=== PATIENT | male | born 1985 | race Two or more races ===

== ENCOUNTER → 2024-02-27 | Outpatient (CLI) | payer BC, OTHER, SELFPAY ==
--- NOTE | 2024-02-27 16:12 | XR_ITS ---
Examination: Thoracic spine 3 views Technique one AP lateral coned lateral upper dorsal spine 3 views Exam date and time: February 27, 2024 1713 hours INDICATIONS: Upper back pain beginning one month ago. FINDINGS: Upper thoracic levoscoliosis 6 degrees No thoracic fracture No thoracic disc narrowing Intact pedicles IMPRESSION: Upper thoracic levoscoliosis 6 degrees
--- NOTE | 2024-02-27 16:12 | XR_ITS ---
Examination: Lumbar spine, 5 views Technique: Lumbar spine AP, lateral, coned lateral lower lumbar spine, bilateral obliques 5 views Exam date and time: February 27, 2024 at 1706 hours INDICATIONS: Low back pain beginning one month ago radiating down both legs FINDINGS: Satisfactory alignment lumbar vertebral bodies No lumbar fracture Mild lumbar spondylosis Mild disc narrowing L5-S1 IMPRESSION: Early degenerative disc disease L5-S1
== END | disposition home or self-care (01) ==
LOC: CDIM 15:46
PROVIDERS: Referring Provider Internal Medicine; Visit Provider Internal Medicine
DX: M51.379 Other intervertebral disc degeneration, lumbosacral region without mention of lumbar back pain or lower extremity pain (principal); M41.84 Other forms of scoliosis, thoracic region
CPT/HCPCS: 72072; 72110

== ENCOUNTER 2024-11-07 13:37 | Emergency (ER) | payer BC, OTHER, SELFPAY ==
[2024-11-07 13:49] VITALS: BP 132/87; PULSE 83; RESP 20; TEMP 37.1; O2SAT 100; BMI 25.7
--- NOTE | 2024-11-07 13:55 | EDNOTE_ITS ---
<Statement entered by Danyell Townsend MD - 11/08/24 15:23> As co-signing physician, I was present and available for consult prn. I concur with the plan and care as documented by the midlevel provider. ED Abdominal Pain RME/HPI General Chief Complaint: Abdominal Pain Stated complaint: Abdominal pain, diarrhea today Time seen by provider: 11/07/24 13:41 Arrival date/time: 11/07/24 13:37 RME / HPI RME / HPI narrative: 39-year-old male patient was brought in by family for evaluation regarding diarrhea. Patient woke up this morning with diarrhea, at least 4 times, nonbloody associated with abdominal cramping and epigastric pain. Pain is described as burning-like sensation, severity moderate. Patient denies any fever denies any dizziness denies any other complaints. No medications taken prior to arrival. Denies any travel outside the [place]. Denies any ill contacts also. Related Data Previous Rx's ?Medication ?Instructions ?Recorded dicyclomine 20 mg tablet 20 mg PO TID PRN abdominal p ain 11/07/24 #30 tabs pantoprazole 40 mg tablet,delayed 40 mg PO QDAY #20 ta bs 11/07/24 release (Protonix) Allergies Allergy/AdvReac Type Severity Reaction Status Date / Time No Known Allergies Allergy Verified 11/07/24 13:41 Review of Systems Review of Systems Narrative Review of Systems: Review of system reviewed and within normal limits except mentioned in HPI ED Exam Narrative Physical exam: VITAL SIGNS: Reviewed. GENERAL APPEARANCE: Alert and interactive, follows commands, no acute distress, HEAD AND FACE: Non-traumatic. ENT: PERRL, pink conjunctivitis, eyelid no trauma, Mucous membrane moist. NECK: Supple, nontender, no nuchal rigidity. CHEST: No tenderness, no crepitus, no paradoxical movement, no retractions. LUNGS: Clear, well ventilated, symmetric, no rales, no wheezing, no ronchi, no stridor, good breath sounds bilaterally. HEART: Regular rate, regular rhythm, no murmur, no gallops. ABDOMEN: Soft, positive bowel sounds, nondistended, no guarding, epigastric tenderness, no rebound, no masses, RECTAL: Deferred. GENITAL: Deferred. NEUROLOGICAL: Gross motor function intact sensory function intact, Appropriate for age. MUSCULOSKELETAL: low back nontender, full range of motion. EXTREMITIES: Nontender, full range of motion. SKIN: Color pink, dry, no rash, no lacerations, no abrasions, no contusions. LYMPHATICS: Deferred. Course Quality Measures none Orders Category Date Time Status US gall bladder Stat Exams 11/07/24 14:00 Taken CBC [CBC] Stat Lab 11/07/24 14:03 Completed CMP [Comprehensive Metabolic Panel] Stat Lab 11/07/24 14:03 Completed Lipase Stat Lab 11/07/24 14:03 Completed Dicyclomine [Bentyl] Med 11/07/24 13:53 Discontinued 10 mg PO X1 ONE Metoclopramide [Reglan] Med 11/07/24 13:53 Discontinued 10 mg PO X1 ONE mg Hyd/Al Hyd/Narayan Susp [Maalox Susp] Med 11/07/24 13:53 Discontinued 30 ml PO X1 ONE Vital Signs Vital signs: Vital Signs Temperature 98.7 F 11/07/24 13:49 Pulse Rate 83 11/07/24 13:49 Respiratory Rate 20 11/07/24 13:49 Blood Pressure 132/87 H 11/07/24 13:49 Pulse Oximetry (%) 100 11/07/24 13:49 Oxygen Delivery Method Room Air 11/07/24 13:49 Abdominal Pain MDM MDM Narrative MDM Narrative:: 39-year-old male patient was brought in by family for evaluation regarding diarrhea. Patient woke up this morning with diarrhea, at least 4 times, nonbloody associated with abdominal cramping and epigastric pain. Pain is described as burning-like sensation, severity moderate. Patient denies any fever denies any dizziness denies any other complaints. No medications taken prior to arrival. Denies any travel outside the [place]. Denies any ill contacts also. Patient supports workup today all came back unremarkable. Except for leukocytosis 16.1 which is reactive in nature. CMP unremarkable lipase is normal ultrasound of gallbladder showed no acute pathology noted. Results discussed with the patient. Patient stable for discharge home advised to drink a lot of fluids including Pedialyte. Patient data External records reviewed:: None Clinical information provided by:: patient Social determinants that could affect healthcare access:: none Patient has the following chronic illnesses:: None How is presenting disease/condition affected by chronic disease/condition?: no chronic disease Evaluation data The following diagnostics were reviewed and interpreted by me:: lab results and radiology exam(s) Lab and/or radiology exams considered but not ordered:: None Interpretation Summary: See results MDM Medications / Prescriptions Medications or Prescriptions considered but not ordered:: None Medication administrations:: Medication Administration History Discontinued Medications Al Hydrox/Mg Hydrox/Simethicone (Mg Hyd/Al Hyd/Narayan (Maalox Reg) Susp 30 Ml Udc) 30 ml PO X1 ONE Stop: 11/07/24 13:54 Last Admin: 11/07/24 14:46 Dose: 30 ml Documented By: ELSIE Dicyclomine HCl (Dicyclomine 10 Mg Capsule) 10 mg PO X1 ONE Stop: 11/07/24 13:54 Last Admin: 11/07/24 14:45 Dose: 10 mg Documented By: ELSIE Metoclopramide HCl (Metoclopramide 5 Mg Tablet) 10 mg PO X1 ONE Stop: 11/07/24 13:54 Last Admin: 11/07/24 14:45 Dose: 10 mg Documented By: ELSIE Cervantes and Rodneyx Consultations Consultation(s) initiated? (list below): No Diagnosis Differential diagnosis abdominal pain: abdominal pain, constipation and gastroenteritis Most likely diagnosis given after review of the tests above:: Gastroenteritis Admission Indicated Admission indicated?: not indicated Explain why admission is indicated or not indicated:: Stable Admission Request Was there a request for admission?: No Disposition Plan Disposition Plan: Discharge Discharge Attestation Discharge Attestation: The patient was given an opportunity to ask questions and understood the discharge instructions. Discharge instructions specifically effects, indications for sooner follow up or return to the emergency department, and the expected course of current diagnosis. Patient condition: Stable Discharge Plan Plan Patient Disposition: HOME (Self Care) Discharge Disposition comment: Stable Prescriptions/Referrals Prescriptions/Med Rec: New dicyclomine 20 mg tablet 20 mg PO TID PRN (Reason: abdominal pain) Qty: 30 0RF pantoprazole [Protonix] 40 mg tablet,delayed release (DR/EC) 40 mg PO QDAY Qty: 20 0RF Referrals: Henrik Leroy MD [Primary Care Provider] - In 1 week Problem List Clinical Impression: Gastroenteritis Patient/Caregiver Discharge Instructions Discharge Activity: activity as tolerated Education Materials: ED Gastroenteritis, Noninfectious Additional Instructions: Thank you for the opportunity for serving you today. You are stable for discharged . You are advised to: Follow-up with your PCP in 1 to 2 days Return to ED for worsening of symptoms Increase oral fluids Take medication as prescribed Print Language: [place] Stand Alone Forms: Evie Award Info., Patient Portal Info Letter YULIYA/KIKI Supervising Physician YULIYA/KIKI Supervising Physician: MD Kristian
--- NOTE | 2024-11-07 14:00 | XR_ITS ---
Examination: Abdomen sonogram, Limited Date and time of exam: November 07, 2024 1446 hours INDICATIONS: Onset epigastric pain today Technique: Real-time chen scale transabdominal sonographic images of the upper abdomen obtained. Findings: Negative for gallstones Gallbladder wall 0.41 cm Common bile duct 0.3 cm Pancreatic head 2.7 cm Liver 15.1 cm no focal liver lesions Normal hepatopedal portal venous flow Patent IVC IMPRESSION: Negative for cholelithiasis Thickened gallbladder wall, clinical correlation advised, consider HIDA scan or MRCP follow-up as clinically warranted
[2024-11-07 14:22] LABS: Basophils # (Auto) 0.1 Thou/mm3 (0.0-0.2); Basophils % (Auto) 0 % (0-2.5); Eosinophils # (Auto) 0.1 Thou/mm3 (0.0-0.5); Eosinophils % (Auto) 1 % (0-10); Hematocrit 44.0 % (41.0-53.0); Hemoglobin 14.9 g/dL (13.5-16.0); Immature Granulocytes Auto 0.07 Thou/mm3 (0.00-0.00); Lymphocytes # (Auto) 1.9 Thou/mm3 (1.0-4.8); Lymphocytes % (Auto) 12 % (10-50); Mean Corpuscular HGB Conc 33.9 g/dl (31.0-37.0); Mean Corpuscular Hemoglobin 30.0 pg (25.0-35.0); Mean Corpuscular Volume 89 fL (80-100); Monocytes # (Auto) 1.0 Thou/mm3 (0.0-0.8); Monocytes % (Auto) 6 % (0-12); Neutrophils # (Auto) 12.9 Thou/mm3 (1.8-7.7); Neutrophils % (Auto) 80 % (37-80); Nucleated Red Blood Cell # 0.00 Thou/mm3 (0.00-0.00); Nucleated Red Blood Cell % 0 /100 WBC (0); Platelet Count 224 Thou/mm3 (140-440); RDW Standard Deviation 40.7 fL (35.1-43.9); Red Blood Count 4.97 Miln/mm3 (4.50-5.90); White Blood Count 16.1 Thou/mm3 (3.8-10.6)
[2024-11-07] MEDS: METOCLOPRAMIDE 5 MG TABLET 10 MG PO (14:45)
[2024-11-07] MEDS: DICYCLOMINE 10 MG CAPSULE PO (14:45)
[2024-11-07 14:46] LABS: Alanine Aminotransferase 23 U/L (10-49); Albumin, Serum 4.5 gm/dL (3.5-5.0); Albumin/Globulin Ratio 1.8 (1.2-2.2); Alkaline Phosphatase 84 U/L (46-116); Anion Gap 9 (7-16); Aspartate Amino Transferase 24 U/L (0-34); BUN/Creatinine Ratio 9 Ratio (12-20); Bilirubin,Total 0.6 mg/dL (0.3-1.2); Blood Urea Nitrogen 9 mg/dL (9-23); Calcium 9.3 mg/dL (8.3-10.6); Calcium (Corrected) 9.3 mg/dL (8.5-10.1); Carbon Dioxide 26.4 mMol/L (20.0-31.0); Chloride 106 mMol/L (98-107); Creatinine (Component) 1.0 mg/dL (0.6-1.3); Estimated Creatinine Clearance 111.0 mL/min (>60); Globulin 2.5 gm/dL (2.3-3.5); Glucose 106 mg/dL (74-106); Lipase 72 U/L (12-53); Osmolality,Calculated 279 (275-295); Potassium 3.9 mMol/L (3.4-5.1); Sodium 141 mMol/L (136-145); Total Protein 7.0 gm/dL (5.7-8.2); eGFR > 60 See Note
[2024-11-07] MEDS: MG HYD/AL HYD/SIME (Maalox Reg) SUSP 30 ML UDC PO (14:46)
== END 2024-11-07 15:49 | disposition home or self-care (01) ==
PROVIDERS: Nurse Practitioner Family; Emergency Provider Emergency Medicine; PCP Family Medicine
DX: K52.9 Noninfective gastroenteritis and colitis, unspecified (principal)
CPT/HCPCS: 36415; 76705; 80053; 83690; 85025; 99283; A9270

== ENCOUNTER → 2024-12-23 | Outpatient (CLI) | payer BC, OTHER, SELFPAY ==
--- NOTE | 2024-12-23 13:19 | XR_ITS ---
Examination: Right knee 4 views TECHNIQUE: AP oblique lateral axial right knee 4 views Date and time: December 23, 2024, 1330 hours INDICATIONS: Right knee pain beginning one year ago. FINDINGS: Minor spurring of the intercondylar spines Early narrowing patellofemoral joint No fracture or patellar dislocation IMPRESSION: Early osteoarthritis No fracture
== END | disposition home or self-care (01) ==
PROVIDERS: PCP Internal Medicine; Referring Provider Internal Medicine; Visit Provider Internal Medicine
DX: M17.11 Unilateral primary osteoarthritis, right knee (principal)
CPT/HCPCS: 73564

== ENCOUNTER → 2025-03-19 | Outpatient (CLI) | payer BC, OTHER, SELFPAY ==
--- NOTE | 2025-03-19 07:00 | XR_ITS ---
Exam: MRI knee without contrast, right Date and time of exam: March, 0731 hours, comparison August 31, 2016 INDICATIONS: Knee pain 1 year, swelling decreased range of motion instability joint clicking joint locking Technique: Multiple axial, coronal, and sagittal sections on the knee have been obtained. T2-Weighted sagittal, fat-suppressed images, TR 3,500, TE 62, T2 weighted coronal fat-saturated images, TR 3,500, TE 62 Proton density sagittal sections, TR 1800, TE 31. T-1 weighted coronal images, TR 524, TE 13.0 Findings: Medial meniscus anterior horn intact. Medial meniscus, body intact. Posterior horn medial meniscus intact. Lateral meniscus anterior horn is intact Lateral meniscus, body is intact Posterior horn lateral meniscus is intact Anterior cruciate ligament moderate sprain Posterior cruciate ligament appears intact. Knee effusion is small. Quadriceps and patellar tendons appear intact. There is no evidence of tendinosis. Inflammatory change or fracture of Hoffa's fat pad is not seen. Medial patellar facet demonstrates mild thinning. Lateral patellar facet cartilage demonstrates mild thinning. Trochlear cartilage demonstrates mild thinning. Marrow signal adequate. Medial collateral ligament appears intact. No meniscocapsular separation is seen. Illiotibial band and fibular collateral ligament are intact. Biceps femoris tendons appear intact. Medial femoral condylar articular cartilage demonstrates mild thinning. Lateral femoral condylar articular cartilage demonstrates mild thinning. Tibial plateau cartilage demonstrates mild thinning. Impression: Moderate sprain anterior cruciate ligament
== END | disposition home or self-care (01) ==
PROVIDERS: PCP Internal Medicine; Referring Provider Internal Medicine; Visit Provider Internal Medicine
DX: S83.511A Sprain of anterior cruciate ligament of right knee, initial encounter (principal); X58.XXXA Exposure to other specified factors, initial encounter
CPT/HCPCS: 73721